=== PATIENT | male | born 2000 | race Two or more races ===

== ENCOUNTER 2020-09-23 12:26 | Emergency (ER) | payer OTHER ==
[~2020-09-23] VITALS: Ht 180.3 cm; Wt 86.3 kg
[2020-09-23 12:27] VITALS: BP 131/75
[2020-09-23] MEDS ORDERED: LIDOCAINE 1% MDV 20ML VIAL SC ONE (13:00)
--- NOTE | 2020-09-23 13:20 | REP ---
INDICATION: injury to 2nd and 4th digit r/o fx. COMPARISON: None. TECHNIQUE: Four views. FINDINGS: Four views of the right fingers demonstrate soft tissue swelling along the radial aspect of the PIP joint of the index finger and soft tissue swelling and irregularity along the middle and distal phalanges of the ring finger.. Tiny chip fracture fragments are seen at the DIP joint of the ring finger on oblique and lateral views. Questionable chip fracture and adjacent to the DIP joint of the long finger also noted. No other fracture seen.. No opaque foreign body noted. IMPRESSION: Tiny chip fractures suspected on either side of the DIP joint of the ring finger. Tiny chip fracture suspected at the DIP joint of the long finger as well. Clinical correlation suggested. Soft tissue swelling involving the ring and index fingers.. <Electronically signed by German No > 09/23/20 [id number]
[2020-09-23] MEDS ORDERED: KEFL500C17 PO (13:57)
[2020-09-23] MEDS ORDERED: ceFAZolin SOD 2 GM in IV 1 EA IV ONE (14:00)
== END 2020-09-23 14:46 | disposition home or self-care (01) ==
LOC: M ED 12:26
DX: S62.600B Fracture of unspecified phalanx of right index finger, initial encounter for open fracture (principal); S62.604B Fracture of unspecified phalanx of right ring finger, initial encounter for open fracture; W22.8XXA Striking against or struck by other objects, initial encounter; Y92.89 Other specified places as the place of occurrence of the external cause; Y93.9 Activity, unspecified; Y99.0 Civilian activity done for income or pay
CPT/HCPCS: 12002; 73140; 96374; 99283; J0690